=== PATIENT | male | born 1970 | race Caucasian/White ===

== ENCOUNTER 2024-07-17 21:11 | Emergency (ER) | payer BC ==
[~2024-07-17] VITALS: Ht 172.7 cm; Wt 73.9 kg
[2024-07-17] MEDS ORDERED: KETOROLAC TROMETHAMINE INJ 30 MG/ML VIAL ONE (22:16)
[2024-07-17] MEDS: KETOROLAC TROMETHAMINE INJ 30 MG/ML VIAL IV ONE (22:27)
[2024-07-17 22:37] LABS: BASOPHILS % (AUTO) 0.5 % (0.0-2.0); EOSINOPHILS # (AUTO) 0.2 K/uL (0.0-0.7); EOSINOPHILS % (AUTO) 2.4 % (0.0-6.0); HEMATOCRIT 45 % (39-51); HEMOGLOBIN 15.4 g/dL (13.5-17.5); LYMPHOCYTES # (AUTO) 3.2 K/uL (0.8-4.8); LYMPHOCYTES % (AUTO) 32.9 % (20.0-44.0); MEAN CORPUSCULAR HEMOGLOBIN 32 PG (26.0-33.0); MEAN CORPUSCULAR HGB CONC 34 g/dl (31.0-36.0); MEAN CORPUSCULAR VOLUME 92 fL (80-96); MONOCYTES # (AUTO) 0.6 K/uL (0.1-1.30); MONOCYTES % (AUTO) 6.3 % (2.0-12.0); NEUTROPHILS # (AUTO) 5.6 K/uL (1.8-8.9); NEUTROPHILS % (AUTO) 57.9 % (43.0-81.0); PLATELET COUNT (AUTO) 180 K/uL (150-450); RED BLOOD CELL COUNT(AUTO) 4.87 MIL/uL (4.5-6.0); RED CELL DISTRIBUTION WIDTH 13.5 % (11.5-15.0); WHITE BLOOD COUNT (AUTO) 9.7 K/uL (4.3-11.0)
[2024-07-17 22:45] LABS: CREATININE 1.4 mg/dL (0.6-1.3); POTASSIUM 4.1 mmol/L (3.5-5.1)
[2024-07-17 22:48] LABS: ERYTHROCYTE SEDIMENTATION RATE 4 MM/HR (0-20)
[2024-07-17 22:55] LABS: LACTIC ACID 1.1 mmol/L (0.4-2.0)
[2024-07-17 23:05] LABS: BILIRUBIN,TOTAL 0.4 mg/dL (0.2-1.0)
[2024-07-17] MEDS ORDERED: CEPH500C2 PO (23:55)
[2024-07-17] MEDS ORDERED: KETO10TA2 PO (23:55)
[2024-07-18 00:36] VITALS: BP 141/89; TEMP 98.5; O2SAT 96
== END 2024-07-18 00:36 | disposition home or self-care (01) ==
LOC: ER 21:19
DX: M71.9 Bursopathy, unspecified (principal); M25.561 Pain in right knee; M25.461 Effusion, right knee; M10.9 Gout, unspecified
CPT/HCPCS: 99285; 96374; 73700; 85025; 83605; 85652; 36415; 80053; J1885